=== PATIENT | male | born 1945 | race Caucasian/White ===

== ENCOUNTER 2021-09-15 19:30 | Outpatient (CLI) | payer MEDICARE | END 2021-09-15 19:31 | disposition home or self-care (01) | LOC: SLEEPLAB 19:30 | PROVIDERS: ATTEND Family Medicine | DX: G47.33 Obstructive sleep apnea (adult) (pediatric) (principal); R53.83 Other fatigue; R06.83 Snoring; R09.89 Other specified symptoms and signs involving the circulatory and respiratory systems; I11.0 Hypertensive heart disease with heart failure; I50.9 Heart failure, unspecified; I48.91 Unspecified atrial fibrillation; G47.00 Insomnia, unspecified; G47.10 Hypersomnia, unspecified | CPT/HCPCS: 95811 ==

== ENCOUNTER 2021-12-30 08:36 | Outpatient (CLI) | payer MEDICARE, OTHER ==
[2021-12-30] MEDS ORDERED: Magnevist 469MG/ML 20 ML VIAL ONE (14:24)
== END 2021-12-30 08:37 | disposition home or self-care (01) ==
LOC: TBSIIMAG 08:36
PROVIDERS: ATTEND Urology
DX: N40.1 Benign prostatic hyperplasia with lower urinary tract symptoms (principal); R97.20 Elevated prostate specific antigen [PSA]; Z98.890 Other specified postprocedural states
CPT/HCPCS: 72197; A9579

== ENCOUNTER 2023-09-22 16:00 | Outpatient (CLI) | payer MEDICARE | END 2023-09-22 16:01 | disposition home or self-care (01) | LOC: SLEEPLAB 16:00 | PROVIDERS: ATTEND Internal Medicine Critical Care Medicine | DX: G47.33 Obstructive sleep apnea (adult) (pediatric) (principal); R53.83 Other fatigue; R06.83 Snoring | CPT/HCPCS: 95811 ==